=== PATIENT | female | born 1955 | race Caucasian/White ===

== ENCOUNTER → 2018-07-15 | Outpatient (CLI) | payer OTHER ==
[~2018-07-15] MED LIST: ALBUTEROL SULFAT2 MG PO; ALBUTEROL2.5 MG/3 M IH; ALBUTEROL2.5 MG/31 INH; B12INJ; BACTROBAN CREAM30 G1; CEFADROXIL 500500 M1; CEFDINIR300 MG PO; CEFTIN500 MG PO; CIPROFLOXACIN500 M1 PO; COMBIVENT INH; DIAZEPAM 10 MG10 M2 PO; DIGITEK250 MC1; DILANTIN 100 M100 MG PO; Duoneb 2.5-0.5 Mg/3 INH; LANOXIN 0.250.25 M1 PO; LOPRESSOR 50 MG50 M1; NICOTINE TRANSD14 M1 TD; NORCO 5-325 TA1 EACH PO; OSELB75 PO; PREDNISOLONE 5 M5 M1; PREDNISONE 10 M10 M1; PREDNISONE 10 M10 MG PO; PROAIR HFA8.5 GM IH; PROAIR HFA8.5 GM INH; PROTONIX40 M1 PO; SERTRALINE HCL100 MG PO; SINGULAIR 10 MG10 M1 PO; TOPROL XL50 MG PO; TRICOR145 MG PO; ZOFRAN4 MG PO; ZPAK
== END ==
LOC: M.RAD 13:54
DX: Z12.31 Encounter for screening mammogram for malignant neoplasm of breast (principal)

== ENCOUNTER → 2018-07-23 | Outpatient (CLI) | payer OTHER | LOC: M.LAB 15:32 | DX: I48.0 Paroxysmal atrial fibrillation (principal) ==

== ENCOUNTER → 2018-07-28 | Outpatient (CLI) | payer OTHER | LOC: M.ULTRA 13:00 | DX: N63.12 Unspecified lump in the right breast, upper inner quadrant (principal); N63.21 Unspecified lump in the left breast, upper outer quadrant ==

== ENCOUNTER → 2018-09-09 | Outpatient (CLI) | payer OTHER | LOC: M.CT 10:03 | DX: J43.9 Emphysema, unspecified (principal); R91.8 Other nonspecific abnormal finding of lung field ==